=== PATIENT | male | born 1975 | race Caucasian/White ===

== ENCOUNTER 2017-01-13 13:00 | Emergency (ER) | payer OTHER ==
[~2017-01-13] VITALS: Ht 175.3 cm; Wt 76.8 kg
[2017-01-13 13:10] VITALS: BP 137/87
== END 2017-01-13 16:47 | disposition home or self-care (01) ==
LOC: ED 13:00
DX: Z76.0 Encounter for issue of repeat prescription (principal)

== ENCOUNTER 2018-03-28 21:50 | Emergency (ER) | payer OTHER ==
[~2018-03-28] VITALS: Ht 175.3 cm; Wt 72.6 kg
[2018-03-28 21:55] VITALS: Ht 175.3 cm; Wt 72.6 kg
[2018-03-28 23:09] VITALS: BP 115/76
== END 2018-03-28 23:09 | disposition other institution (70) ==
LOC: ED 21:50
DX: M94.0 Chondrocostal junction syndrome [Tietze] (principal); S29.011A Strain of muscle and tendon of front wall of thorax, initial encounter; X58.XXXA Exposure to other specified factors, initial encounter; Y92.9 Unspecified place or not applicable
CPT/HCPCS: Q0092

== ENCOUNTER 2018-03-28 21:50 | Emergency (ER) | payer OTHER | END 2018-03-28 23:09 | disposition other institution (70) | LOC: ED 21:50 | DX: Z02.89 Encounter for other administrative examinations (principal) ==

== ENCOUNTER 2019-11-20 23:29 | Emergency (ER) | payer OTHER ==
[~2019-11-20] VITALS: Ht 175.3 cm; Wt 77.1 kg
[2019-11-20 23:38] VITALS: Ht 175.3 cm; Wt 77.1 kg
[2019-11-21 00:12] LABS: BASOPHIL % 0.1 % (0-2); PLATELET COUNT 276 x10^3mcL (130-400); RED CELL DISTRIBUTION WIDTH 12.6 % (11.5-14.5)
[2019-11-21 00:39] LABS: CALCIUM 8.6 mg/dL (8.5-10.1); CARBON DIOXIDE 31.9 mmol/L (21-32); CHLORIDE SERUM 105 mmol/L (98-107); GFR1 > 60 mL/min; GLUCOSE SERUM 214 mg/dL (74-106); POTASSIUM SERUM 4.1 mmol/L (3.5-5.1); SODIUM SERUM 142 mmol/L (136-145)
[2019-11-21 00:44] LABS: ALBUMIN 4.1 g/dL (3.4-5.0); ALKALINE PHOSPHATASE 57 U/L (46-116); ALT/SGPT 25 U/L (16-63); AST/SGOT 15 U/L (15-37); BILIRUBIN TOTAL 0.95 mg/dL (0.20-1.00); LIPASE 88 IU/L (73-393); TOTAL PROTEIN, SERUM 7.4 g/dL (6.4-8.2)
[2019-11-21 02:14] LABS: AMPHETAMINE QUAL UR POSITIVE (See below)
[2019-11-21 02:33] VITALS: BP 110/71
== END 2019-11-21 02:32 | disposition home or self-care (01) ==
LOC: ED 23:29
PROVIDERS: Emergency Medicine
DX: F15.10 Other stimulant abuse, uncomplicated (principal); R10.13 Epigastric pain; R51 Headache
CPT/HCPCS: 36415; G0480

== ENCOUNTER 2020-04-11 17:39 | Emergency (ER) | payer OTHER ==
[~2020-04-11] VITALS: Ht 175.3 cm; Wt 70.3 kg
[2020-04-11 17:40] VITALS: Ht 175.3 cm; Wt 70.3 kg
[2020-04-11 19:45] VITALS: BP 112/72
== END 2020-04-11 19:45 | disposition home or self-care (01) ==
LOC: ED 17:39
DX: R51 Headache (principal); F17.210 Nicotine dependence, cigarettes, uncomplicated; R07.89 Other chest pain
CPT/HCPCS: 82962; 99406; Q0092

== ENCOUNTER 2020-08-23 17:14 | Emergency (ER) | payer OTHER ==
[~2020-08-23] VITALS: Ht 167.6 cm; Wt 63.5 kg
[2020-08-23 20:42] VITALS: BP 128/78
== END 2020-08-23 20:42 | disposition home or self-care (01) ==
LOC: ED 17:14
DX: S01.01XA Laceration without foreign body of scalp, initial encounter (principal); S20.229A Contusion of unspecified back wall of thorax, initial encounter; F17.210 Nicotine dependence, cigarettes, uncomplicated; Y04.8XXA Assault by other bodily force, initial encounter; Y93.89 Activity, other specified; Y92.89 Other specified places as the place of occurrence of the external cause; Y99.8 Other external cause status
CPT/HCPCS: 72072; 90715